=== PATIENT | male | born 1980 | race Caucasian/White ===

== ENCOUNTER 2017-06-02 03:11 | Emergency (ER) | payer OTHER ==
[2017-06-02 03:17] VITALS: TEMP 97.9
[2017-06-02] MEDS ORDERED: KETOROLAC 30 MG/ML 1 ML VIAL IVP STA (03:29)
[2017-06-02] MEDS ORDERED: SODIUM CHLORIDE 0.9% 1,000 ML IV STA ×2 (03:29)
[2017-06-02] MEDS ORDERED: ONDANSETRON 4 MG/2 ML VIAL IVP STA (03:29)
[2017-06-02] MEDS ORDERED: HYDROmorphone 1 MG/ML 1 ML SYRINGE IVP STA (03:29)
[2017-06-02] MEDS ORDERED: RX INFO: IV CONTRAST WAS GIVEN 1 EACH MISC MISCELLANE PRN (03:36)
[2017-06-02 03:54] LABS: Basophils % (A) 1 %; Eosinophils # (A) 0.1 k/uL (0-0.7); Eosinophils % (A) 1 %; HGB 14.2 gm/dL (13.0-17.5); Lymphocytes # (A) 1.2 k/uL (1.0-4.8); Lymphocytes % (A) 18 %; MCH 27.7 pg (25.0-35.0); MCHC 32.3 g/dL (31.0-37.0); MCV 85.6 fL (80.0-100.0); Mean Platelet Volume 8.7; Monocytes # (A) 0.2 k/uL (0-1.0); Monocytes % (A) 3 %; Neutrophils # (A) 5.1 k/uL (1.3-7.7); Neutrophils % (A) 76 %; Platelet Count 212 k/uL (150-450); RBC 5.14 m/uL (4.30-5.90); RDW 14.7 % (11.5-15.5); WBC 6.8 k/uL (3.8-10.6)
[2017-06-02 04:02] LABS: ALT 48 U/L (21-72); AST 27 U/L (17-59); Albumin 4.6 g/dL (3.5-5.0); Alkaline Phosphatase 75 U/L (38-126); Amylase 30 U/L (30-110); Anion Gap 12 mmol/L; Blood Urea Nitrogen 18 mg/dL (9-20); Calcium 9.4 mg/dL (8.4-10.2); Carbon Dioxide 29 mmol/L (22-30); Chloride 101 mmol/L (98-107); Glucose 136 mg/dL (74-99); Lipase 54 U/L (23-300); Potassium 4.3 mmol/L (3.5-5.1); Sodium 142 mmol/L (137-145); Total Bilirubin 0.4 mg/dL (0.2-1.3); Total Protein 7.6 g/dL (6.3-8.2)
--- NOTE | 2017-06-02 04:10 | ED ---
Abdominal Pain HPI - General Chief Complaint: Abdominal Pain Stated Complaint: abd pain Time Seen by Provider: 06/02/17 03:22 Source: patient, RN notes reviewed, old records reviewed Mode of arrival: ambulatory Limitations: no limitations - History of Present Illness Initial Comments: Patient is a 36-year-old male presenting to emergency department today chief complaint of severe right upper quadrant and right sided abdominal pain radiating towards his back. Patient reports that the symptoms of been going on for the past few hours. Patient has been vomiting for the past 3 days off and on, was having some minor pain. He reports became severe over the past few hours prior to arriving to emergency department. He does not have a primary care provider and rarely goes to the doctor. Patient reports that he's had diarrhea over the past few days as well. He denies any known fever or chills. Denies any known urinary symptoms. He states that he's been trying to urinate over the past few hours but has been unsuccessful. Patient states that he has had prior surgery for testicular torsion. No other surgeries or medical history noted. - Related Data Previous Rx's Medication Instructions Recorded Ciprofloxacin HCl [Cipro] 500 mg PO Q12HR 5 Days tab 06/02/17 HYDROcodone/APAP 5-325MG [[place] 1 - 2 tab PO Q6HR PRN #15 tab 06/02/17 5-325] Ketorolac [Toradol] 10 mg PO Q6HR #15 tab 06/02/17 Ondansetron Odt [Zofran Odt] 4 mg PO Q8HR PRN #12 tab 06/02/17 Tamsulosin [Flomax] 0.4 mg PO DAILY #10 cap 06/02/17 Allergies Allergy/AdvReac Type Severity Reaction Status Date / Time blueberry Allergy Unknown Verified 06/02/17 03:17 Review of Systems ROS Statement: Those systems with pertinent positive or pertinent negative responses have been documented in the HPI. ROS Other: All systems not noted in ROS Statement are negative. Past Medical History Additional Past Medical History / Comment(s): hx. of twisted testicle. History of Any Multi-Drug Resistant Organisms: None Reported Past Surgical History: No Surgical Hx Reported Past Psychological History: No Psychological Hx Reported Smoking Status: Never smoker Past Alcohol Use History: Occasional Past Drug Use History: None Reported General Exam - General Exam Comments Initial Comments: This is a 36-year-old male. Patient appears in acute discomfort. Limitations: no limitations General appearance: alert, in no apparent distress Head exam: Present: atraumatic, normocephalic, normal inspection Eye exam: Present: normal appearance, PERRL, EOMI. Absent: scleral icterus, conjunctival injection, periorbital swelling ENT exam: Present: normal exam, mucous membranes moist Neck exam: Present: normal inspection. Absent: tenderness, meningismus, lymphadenopathy Respiratory exam: Present: normal lung sounds bilaterally. Absent: respiratory distress, wheezes, rales, rhonchi, stridor Cardiovascular Exam: Present: regular rate, normal rhythm, normal heart sounds. Absent: systolic murmur, diastolic murmur, rubs, gallop, clicks GI/Abdominal exam: Present: tenderness (Patient has significant tenderness, guarding and rebound tenderness over the right upper and lower quadrants.), guarding, rebound, normal bowel sounds. Absent: soft, distended, rigid Extremities exam: Present: normal inspection, full ROM, normal capillary refill. Absent: tenderness, pedal edema, joint swelling, calf tenderness Back exam: Present: normal inspection Neurological exam: Present: alert, oriented X3, CN II-XII intact Psychiatric exam: Present: normal affect, normal mood Skin exam: Present: warm, dry, intact, normal color. Absent: rash Course Vital Signs 06/02/17 06/02/17 03:13 05:23 Temperature 97.9 F Pulse Rate 68 52 L Respiratory 18 16 Rate Blood Pressure 136/96 128/74 O2 Sat by Pulse 99 97 Oximetry Medical Decision Making - Medical Decision Making Patient is a 36-year-old male presenting to emergency department today chief complaint of severe right upper quadrant and right sided abdominal pain radiating towards his back. Patient reports that the symptoms of been going on for the past few hours. Patient has been vomiting for the past 3 days off and on, was having some minor pain. He reports became severe over the past few hours prior to arriving to emergency department. Patient given IV fluids and lab work obtained. Urinalysis shows minor RBC. No other abnormalities noted. CT shows evidence of right ureteral stone. Patient will be discharged with flomax, pain medication, tirso. Discussed follow up with PCP and urology. Return parameters dsicussed. - Lab Data Result diagrams: 06/02/17 03:25 06/02/17 03:25 Lab Results 06/02/17 06/02/17 06/02/17 Range/Units 03:25 03:25 04:31 WBC 6.8 (3.8-10.6) k/uL RBC 5.14 (4.30-5.90) m/uL Hgb 14.2 (13.0-17.5) gm/dL Hct 44.0 (39.0-53.0) % MCV 85.6 (80.0-100.0) fL MCH 27.7 (25.0-35.0) pg MCHC 32.3 (31.0-37.0) g/dL RDW 14.7 (11.5-15.5) % Plt Count 212 (150-450) k/uL Neutrophils % 76 % Lymphocytes % 18 % Monocytes % 3 % Eosinophils % 1 % Basophils % 1 % Neutrophils # 5.1 (1.3-7.7) k/uL Lymphocytes # 1.2 (1.0-4.8) k/uL Monocytes # 0.2 (0-1.0) k/uL Eosinophils # 0.1 (0-0.7) k/uL Basophils # 0.0 (0-0.2) k/uL Sodium 142 (137-145) mmol/L Potassium 4.3 (3.5-5.1) mmol/L Chloride 101 (98-107) mmol/L Carbon Dioxide 29 (22-30) mmol/L Anion Gap 12 mmol/L BUN 18 (9-20) mg/dL Creatinine 1.10 (0.66-1.25) mg/dL Est GFR (MDRD) Af Amer >60 (>60 ml/min/1.73 sqM) Est GFR (MDRD) Non-Af >60 (>60 ml/min/1.73 sqM) Glucose 136 H (74-99) mg/dL Calcium 9.4 (8.4-10.2) mg/dL Total Bilirubin 0.4 (0.2-1.3) mg/dL AST 27 (17-59) U/L ALT 48 (21-72) U/L Alkaline Phosphatase 75 (38-126) U/L Total Protein 7.6 (6.3-8.2) g/dL Albumin 4.6 (3.5-5.0) g/dL Amylase 30 (30-110) U/L Lipase 54 (23-300) U/L Urine Color Yellow Urine Appearance Clear (Clear) Urine pH 6.0 (5.0-8.0) Ur Specific [place] >1.050 H (1.001-1.035) Urine Protein 1+ H (Negative) Urine Glucose (UA) Negative (Negative) Urine Ketones Negative (Negative) Urine Blood Small H (Negative) Urine Nitrite Negative (Negative) Urine Bilirubin Negative (Negative) Urine Urobilinogen <2.0 (<2.0) mg/dL Ur Leukocyte Esterase Negative (Negative) Urine RBC 6 H (0-5) /hpf Urine WBC 3 (0-5) /hpf Ur Squamous Epith Cells 1 (0-4) /hpf Urine Mucus Rare H (None) /hpf - Radiology Data Radiology results: report reviewed Evidence of right ureteral stone with fullness in right pelvis. Likely benign renal cyst. No sign of appendicitis. Disposition Clinical Impression: Right ureteral stone Disposition: HOME SELF-CARE Condition: Good Instructions: Ureteral Stones (ED) Additional Instructions: Patient advised to a take the medications as prescribed. Follow-up with urologist. Return to the emergency department if any alarming signs or symptoms occur. Prescriptions: Ciprofloxacin HCl [Cipro] 500 mg PO Q12HR 5 Days tab HYDROcodone/APAP 5-325MG [[place] 5-325] 1 - 2 tab PO Q6HR PRN #15 tab PRN Reason: Pain Ketorolac [Toradol] 10 mg PO Q6HR #15 tab Ondansetron Odt [Zofran Odt] 4 mg PO Q8HR PRN #12 tab PRN Reason: Nausea Tamsulosin [Flomax] 0.4 mg PO DAILY #10 cap Referrals: None,Stated [Primary Care Provider] - 1-2 days Kiran Shook MD [STAFF PHYSICIAN] - 1-2 days Time of Disposition: 05:11
--- NOTE | 2017-06-02 04:38 | CT ---
EXAM: CT Abdomen and Pelvis With Intravenous Contrast CLINICAL HISTORY: Reason: RUQ pain TECHNIQUE: Axial computed tomography images of the abdomen and pelvis with intravenous contrast. CTDI is 44.6 mGy and DLP is 1977.2 mGy-cm. This CT exam was performed using one or more of the following dose reduction techniques: automated exposure control, adjustment of the mA and/or kV according to patient size, and/or use of iterative reconstruction technique. COMPARISON: None FINDINGS: Lower thorax: Small hiatal hernia. ABDOMEN: Liver: Unremarkable. No mass. Gallbladder and bile ducts: Unremarkable. No calcified stones. No ductal dilation. Pancreas: Unremarkable. No mass. No ductal dilation. Spleen: Unremarkable. No splenomegaly. Adrenals: Unremarkable. No mass. Kidneys and ureters: 1.8 x 1.6 cm low-density lesion in the posterior upper right kidney demonstrating slight wedge like appearance. This demonstrates Hounsfield measurement of 15. This may represent a complex cyst. Focal evolving infarction give this appearance. Slight fullness of the right renal pelvis. 2 mm calcification in the mid right ureter likely calculus. No left renal or ureteral calculus. Stomach and bowel: Nonspecific bowel gas pattern. No obstruction. No mucosal thickening. Appendix: Normal appendix. PELVIS: Bladder: Unremarkable. No mass. Reproductive: Unremarkable as visualized. ABDOMEN and PELVIS: Intraperitoneal space: Unremarkable. No free air. No significant fluid collection. Bones/joints: Mild compression deformities in the lower thoracic spine, likely chronic. Endplate changes at multiple levels in the lower thoracic spine and lumbar spine. No dislocation. Soft tissues: Small left inguinal hernia containing fat. Vasculature: Unremarkable. No abdominal aortic aneurysm. Lymph nodes: Unremarkable. No enlarged lymph nodes. Other findings: IMPRESSION: Tiny right mid ureteral calculus with slight fullness of the proximal right renal pelvis. Small right renal lesion, likely benign. No CT evidence for appendicitis.
[2017-06-02 04:52] LABS: Appearance,Urine Clear (Clear); Bilirubin,Urine Negative (Negative); Blood,Urine Small (Negative); Color,Urine Yellow; Glucose,Urine (UA) Negative (Negative); Ketones,Urine Negative (Negative); Leukocyte Esterase,Urine Negative (Negative); Mucus,Urine Rare /hpf; Nitrite,Urine Negative (Negative); Protein,Urine 1+ (Negative); RBC,Urine 6 /hpf (0-5); Squamous Epithelial Cell,Urine 1 /hpf (0-4); Urobilinogen,Urine <2.0 mg/dL (<2.0); WBC,Urine 3 /hpf (0-5)
[2017-06-02 04:53] LABS: Specific Gravity,Urine >1.050 (1.001-1.035)
[2017-06-02] MEDS ORDERED: TAMSULOSIN 0.4 MG CAP.ER.24H PO STA (05:12)
[2017-06-02 05:24] VITALS: BP 128/74; PULSE 52; RESP 16
== END 2017-06-02 05:30 | disposition home or self-care (01) ==
LOC: EC 03:11
DX: N20.1 Calculus of ureter (principal); R10.11 Right upper quadrant pain; R19.7 Diarrhea, unspecified; Z91.018 Allergy to other foods; Z98.890 Other specified postprocedural states
CPT/HCPCS: 99284; 96374; 96375 ×2; 96361 ×3; 36415; 80053; 82150; 83690; 85025; 81001; 74177; J2405; J1885; J1170; Q9967

== ENCOUNTER 2018-08-25 06:50 | Emergency (ER) | payer OTHER ==
[2018-08-25 07:00] VITALS: RESP 18; TEMP 97.6
[2018-08-25] MEDS ORDERED: HYDROmorphone 1 MG/ML 1 ML SYRINGE IVP STA (07:12)
[2018-08-25] MEDS ORDERED: SODIUM CHLORIDE 0.9% 1,000 ML IV STA (07:12)
[2018-08-25] MEDS ORDERED: ONDANSETRON 4 MG/2 ML VIAL IVP STA (07:12)
[2018-08-25] MEDS ORDERED: KETOROLAC 30 MG/ML 1 ML VIAL IVP STA (07:12)
--- NOTE | 2018-08-25 07:14 | ED ---
General Adult HPI - General Chief complaint: Abdominal Pain Stated complaint: Abdominal Pain Time Seen by Provider: 08/25/18 07:00 Source: patient, family, RN notes reviewed Mode of arrival: ambulatory Limitations: no limitations - History of Present Illness Initial comments: This is a 38-year-old male who presents emergency department with 12 hours of left sided quadrant abdominal pain. Patient states she's had the dry heaves but actually has not vomited. Patient states a little bit of diarrhea but not a lot. Patient states she's had a kidney stone history the past. Patient denies any previous surgeries. Patient states the pain is gotten more intense over the 12 hours. Patient denies any fever chills. Patient denies any chest pain difficult breathing shortness of breath. Patient denies any dysuria hematuria urinary frequency. Patient states is a little bit of back pain on the left side. - Related Data Home Medications Medication Instructions Recorded Confirmed [place] Unknown Dose 1 tab PO ONCE PRN 08/25/18 08/25/18 Previous Rx's Medication Instructions Recorded Hydrocodone/Acetaminophen [[place] 1 each PO Q4HR PRN #14 tab 08/25/18 5-325] Ketorolac [Toradol] 10 mg PO Q6HR #15 tab 08/25/18 Allergies Allergy/AdvReac Type Severity Reaction Status Date / Time blueberry Allergy Unknown Verified 08/25/18 07:29 Review of Systems ROS Statement: Those systems with pertinent positive or pertinent negative responses have been documented in the HPI. ROS Other: All systems not noted in ROS Statement are negative. Past Medical History Additional Past Medical History / Comment(s): hx. of twisted testicle. History of Any Multi-Drug Resistant Organisms: None Reported Past Surgical History: No Surgical Hx Reported Past Psychological History: No Psychological Hx Reported Smoking Status: Never smoker Past Alcohol Use History: Occasional Past Drug Use History: None Reported General Exam - General Exam Comments Initial Comments: GENERAL: Patient is well-developed and well-nourished. Patient is nontoxic and well- hydrated and is in moderate distress. ENT: Neck is soft and supple. No significant lymphadenopathy is noted. Oropharynx is clear. Moist mucous membranes. Neck has full range of motion without eliciting any pain. EYES: The sclera were anicteric and conjunctiva were pink and moist. Extraocular movements were intact and pupils were equal round and reactive to light. Eyelids were unremarkable. PULMONARY: Unlabored respirations. Good breath sounds bilaterally. No audible rales rhonchi or wheezing was noted. CARDIOVASCULAR: There is a regular rate and rhythm without any murmurs gallops or rubs. ABDOMEN: Left-sided abdominal pain on palpation. No rebound. No palpable organomegaly was noted. There is no palpable pulsatile mass. SKIN: Skin is clear with no lesions or rashes and otherwise unremarkable. NEUROLOGIC: Patient is alert and oriented x3. Cranial nerves II through XII are grossly intact. Motor and sensory are also intact. Normal speech, volume and content. Symmetrical smile. MUSCULOSKELETAL: Normal extremities with adequate strength and full range of motion. No lower extremity swelling or edema. No calf tenderness. LYMPHATICS: No significant lymphadenopathy is noted PSYCHIATRIC: Normal psychiatric evaluation. Limitations: no limitations Course Vital Signs 08/25/18 06:58 Temperature 97.6 F Pulse Rate 69 Respiratory 18 Rate Blood Pressure 167/79 O2 Sat by Pulse 97 Oximetry Medical Decision Making - Medical Decision Making Patient has a one to 2 mm kidney stone at the distal aspect of the area. Patient has hydroureter. - Lab Data Result diagrams: 08/25/18 07:12 08/25/18 07:12 Lab Results 08/25/18 08/25/18 08/25/18 Range/Units 07:12 07:12 07:12 WBC 7.2 (3.8-10.6) k/uL RBC 4.98 (4.30-5.90) m/uL Hgb 14.0 (13.0-17.5) gm/dL Hct 42.6 (39.0-53.0) % MCV 85.4 (80.0-100.0) fL MCH 28.2 (25.0-35.0) pg MCHC 33.0 (31.0-37.0) g/dL RDW 13.8 (11.5-15.5) % Plt Count 266 (150-450) k/uL Neutrophils % 71 % Lymphocytes % 21 % Monocytes % 5 % Eosinophils % 1 % Basophils % 0 % Neutrophils # 5.1 (1.3-7.7) k/uL Lymphocytes # 1.5 (1.0-4.8) k/uL Monocytes # 0.4 (0-1.0) k/uL Eosinophils # 0.1 (0-0.7) k/uL Basophils # 0.0 (0-0.2) k/uL Sodium 142 (137-145) mmol/L Potassium 4.2 (3.5-5.1) mmol/L Chloride 109 H (98-107) mmol/L Carbon Dioxide 24 (22-30) mmol/L Anion Gap 9 mmol/L BUN 14 (9-20) mg/dL Creatinine 1.02 (0.66-1.25) mg/dL Est GFR (CKD-EPI)AfAm >90 (>60 ml/min/1.73 sqM) Est GFR (CKD-EPI)NonAf >90 (>60 ml/min/1.73 sqM) Glucose 128 H (74-99) mg/dL Calcium 9.5 (8.4-10.2) mg/dL Total Bilirubin 0.7 (0.2-1.3) mg/dL AST 25 (17-59) U/L ALT 51 (21-72) U/L Alkaline Phosphatase 69 (38-126) U/L Total Protein 7.5 (6.3-8.2) g/dL Albumin 4.5 (3.5-5.0) g/dL Amylase 37 (30-110) U/L Lipase 69 (23-300) U/L Urine Color Yellow Urine Appearance Cloudy (Clear) Urine pH 5.5 (5.0-8.0) Ur Specific [place] 1.029 (1.001-1.035) Urine Protein 1+ H (Negative) Urine Glucose (UA) Negative (Negative) Urine Ketones Negative (Negative) Urine Blood Large H (Negative) Urine Nitrite Negative (Negative) Urine Bilirubin Negative (Negative) Urine Urobilinogen <2.0 (<2.0) mg/dL Ur Leukocyte Esterase Negative (Negative) Urine RBC 149 H (0-5) /hpf Hyaline Casts 12 H (0-2) /lpf Urine Mucus Many H (None) /hpf Disposition Clinical Impression: Kidney stone Disposition: HOME SELF-CARE Condition: Good Instructions (If sedation given, give patient instructions): Kidney Stones (ED), How to Strain Your Urine (ED) Prescriptions: Hydrocodone/Acetaminophen [[place] 5-325] 1 each PO Q4HR PRN #14 tab PRN Reason: Pain Ketorolac [Toradol] 10 mg PO Q6HR #15 tab Is patient prescribed a controlled substance at d/c from ED?: Yes When asked, does pt state using other controlled substances?: No If prescribed controlled substance>3 days was MAPS reviewed?: Prescribed <3 Days If opioid is for acute pain is fill amount 7 days or less?: Yes If Rx opioid, was Start Talking consent form obtained?: Yes Referrals: None,Stated [Primary Care Provider] - 1-2 days Time of Disposition: 08:07
[2018-08-25 07:29] LABS: Appearance,Urine Cloudy (Clear); Bilirubin,Urine Negative (Negative); Blood,Urine Large (Negative); Color,Urine Yellow; Glucose,Urine (UA) Negative (Negative); Hyaline Casts,Urine 12 /lpf (0-2); Ketones,Urine Negative (Negative); Leukocyte Esterase,Urine Negative (Negative); Mucus,Urine Many /hpf; Nitrite,Urine Negative (Negative); PH, Urine 5.5 (5.0-8.0); Protein,Urine 1+ (Negative); RBC,Urine 149 /hpf (0-5); Specific Gravity,Urine 1.029 (1.001-1.035); Urobilinogen,Urine <2.0 mg/dL (<2.0)
[2018-08-25 07:37] LABS: ALT 51 U/L (21-72); AST 25 U/L (17-59); Albumin 4.5 g/dL (3.5-5.0); Alkaline Phosphatase 69 U/L (38-126); Amylase 37 U/L (30-110); Anion Gap 9 mmol/L; Blood Urea Nitrogen 14 mg/dL (9-20); Calcium 9.5 mg/dL (8.4-10.2); Carbon Dioxide 24 mmol/L (22-30); Chloride 109 mmol/L (98-107); Glucose 128 mg/dL (74-99); Lipase 69 U/L (23-300); Potassium 4.2 mmol/L (3.5-5.1); Sodium 142 mmol/L (137-145); Total Bilirubin 0.7 mg/dL (0.2-1.3); Total Protein 7.5 g/dL (6.3-8.2)
--- NOTE | 2018-08-25 07:44 | XR ---
EXAMINATION TYPE: XR KUB , 2 VIEWS DATE OF EXAM ORDERED: 08/25/2018 HISTORY: abdominal pain. COMPARISON: None. FINDINGS: The lung bases are clear. Within the abdomen, the abdominal gas pattern is unremarkable. There is no evidence of obstruction or free air. No unusual calcifications are seen. IMPRESSION: NONACUTE ABDOMEN.
[2018-08-25 08:00] LABS: Basophils % (A) 0 %; Eosinophils # (A) 0.1 k/uL (0-0.7); Eosinophils % (A) 1 %; HCT 42.6 % (39.0-53.0); Lymphocytes # (A) 1.5 k/uL (1.0-4.8); Lymphocytes % (A) 21 %; MCH 28.2 pg (25.0-35.0); MCV 85.4 fL (80.0-100.0); Mean Platelet Volume 7.7; Monocytes # (A) 0.4 k/uL (0-1.0); Monocytes % (A) 5 %; Neutrophils # (A) 5.1 k/uL (1.3-7.7); Neutrophils % (A) 71 %; Platelet Count 266 k/uL (150-450); RBC 4.98 m/uL (4.30-5.90); RDW 13.8 % (11.5-15.5); WBC 7.2 k/uL (3.8-10.6)
--- NOTE | 2018-08-25 08:03 | CT ---
EXAMINATION TYPE: CT abdomen pelvis wo con DATE OF EXAM: 08/25/2018 COMPARISON: Previous study dated 06/02/2017 HISTORY: Left sided pain with history of stones. CT DLP: 1279.4 mGycm Automated exposure control for dose reduction was used. FINDINGS: Visualized portions of the lungs are clear. There is no pleural or pericardial fluid. The h eart is not enlarged. Within the abdomen, the liver spleen and gallbladder are normal. Both adrenal glands appear normal. The lesion in the upper pole of the right kidney which previously measured 2.1 cm now measures 4 cm. This may represent an enlarging cyst. There is mild fullness in the left renal pelvis and there is mi ld dilatation of the left ureter as well as some stranding about the left ureter. There is a tiny, 1 to 2 mm calculus in the region of the left trigone of the bladder. This may represent a recently pass ed calculus. This was not present previously. Both the large and small bowel appear unremarkable. The appendix is normal. There is no free fluid and no free air is seen. There is hypertrophic spondylosis present at L1-2. Th ere is mild wedging of the thoracic vertebra from T9 to T12. This may have progressed slightly. IMPRESSION: 1. 1 TO 2 MM CALCULUS AT THE LEVEL OF THE TRIGONE OF THE BLADDER ON THE LEFT WITH SOME STRANDING OF T HE LEFT URETER AND MILD FULLNESS OF THE LEFT RENAL PELVIS SUGGESTS A RECENTLY PASSED STONE. 2. ENLARGING RIGHT RENAL LESION. 3. MILD WEDGING OF SEVERAL OF THE LOWER DORSAL VERTEBRA WHICH MAY HAVE PROGRESSED SLIGHTLY.
[2018-08-25 08:26] VITALS: BP 150/70; PULSE 65
== END 2018-08-25 08:26 | disposition home or self-care (01) ==
LOC: EC 06:50
DX: N13.2 Hydronephrosis with renal and ureteral calculous obstruction (principal); R19.7 Diarrhea, unspecified; Z91.018 Allergy to other foods
CPT/HCPCS: 36415; 80053; 82150; 83690; 85025; 81001; 74018; 74176; 99284; 96374; 96375 ×2; 96361; J2405; J1885; J1170

== ENCOUNTER 2021-12-18 13:19 | Emergency (ER) | payer OTHER ==
[2021-12-18 13:30] VITALS: BP 137/90; PULSE 76; RESP 16; TEMP 98
[2021-12-18] MEDS ORDERED: HYDROcodone/APAP 5-325MG 1 EACH TAB PO STA (14:00)
[2021-12-18] MEDS ORDERED: LIDOCAINE 1% INJ 10MG/ML (5 ML VIAL-PF) SQ ONE (14:00)
[2021-12-18] MEDS ORDERED: DIPH,PERTUS(ACELL)TETVAC-LF 0.5 ML VIAL IM ONE (14:00)
--- NOTE | 2021-12-18 14:20 | XR ---
EXAMINATION TYPE: XR finger RT DATE OF EXAM: 12/18/2021 COMPARISON: NONE HISTORY: Trauma. Pain TECHNIQUE: 3 views FINDINGS: There is transverse fracture across the tuft of the distal phalanx of the right thumb. Ther e is separation of the fragments 3 mm. No dislocation. Joint spaces are normal. No evidence of a fore ign body. IMPRESSION: Acute transverse tuft fracture of the distal phalanx of the right thumb.
[2021-12-18] MEDS ORDERED: ceFAZolin 1,000 MG VIAL (IM USE) IM STA (14:26)
[2021-12-18] MEDS ORDERED: GELATIN SPONGE,ABSORB (SMALL) 1 EACH SPONGE TOPICAL STA (15:20)
--- NOTE | 2021-12-18 15:52 | ED ---
Upper Extremity HPI - General Chief Complaint: Trauma Stated Complaint: Hand/nail injury Time Seen by Provider: 12/18/21 13:46 Source: patient Mode of arrival: ambulatory Limitations: no limitations - History of Present Illness Initial Comments: This is a 41-year-old male who presents to the emergency department for a right thumb injury. Patient was at work when he got his thumb caught in a sand meal grinder tender. States that his thumb currently feels numb. Unsure when his last tetanus vaccine was. Denies any fevers, chills, sore throat, cough, dyspnea, chest pain, palpitations, abdominal pain, nausea, vomiting, diarrhea, back pain, or headaches. MD Complaint: Injury to:: right, finger (thumb) - Related Data Home Medications Medication Instructions Recorded Confirmed [place] Unknown Dose 1 tab PO ONCE PRN 08/25/18 08/25/18 Previous Rx's Medication Instructions Recorded Hydrocodone/Acetaminophen [[place] 1 each PO Q4HR PRN #14 tab 08/25/18 5-325] Ketorolac [Toradol] 10 mg PO Q6HR #15 tab 08/25/18 Cephalexin [Keflex] 1,000 mg PO Q12HR 7 Days #28 cap 12/18/21 Allergies Allergy/AdvReac Type Severity Reaction Status Date / Time blueberry Allergy Unknown Verified 12/18/21 13:28 Review of Systems ROS Statement: Those systems with pertinent positive or pertinent negative responses have been documented in the HPI. ROS Other: All systems not noted in ROS Statement are negative. Past Medical History Additional Past Medical History / Comment(s): hx. of twisted testicle. History of Any Multi-Drug Resistant Organisms: None Reported Past Surgical History: No Surgical Hx Reported Past Psychological History: No Psychological Hx Reported Past Alcohol Use History: Occasional Past Drug Use History: None Reported General Exam Limitations: no limitations General appearance: alert, in no apparent distress Head exam: Present: atraumatic, normocephalic, normal inspection Respiratory exam: Present: normal lung sounds bilaterally. Absent: respiratory distress, wheezes, rales, rhonchi, stridor Cardiovascular Exam: Present: regular rate, normal rhythm, normal heart sounds. Absent: systolic murmur, diastolic murmur, rubs, gallop, clicks Neurological exam: Present: alert, oriented X3, CN II-XII intact Psychiatric exam: Present: normal affect, normal mood Skin exam: Present: other (The nail of the right thumb has been pulled off and there is a vertical laceration through the center. Active bleeding. ) Course Vital Signs 12/18/21 13:28 Temperature 98 F Pulse Rate 76 Respiratory 16 Rate Blood Pressure 137/90 O2 Sat by Pulse 99 Oximetry Procedures - Laceration Laceration #1 Consent Obtained: verbal consent Indication: laceration Site: other (right thumb) Size (cm): 1 Description: linear Depth: simple, single layer Anesthetic Used: lidocaine 1% Anesthesia Technique: local infiltration Amount (mls): 1 Pre-repair: wound explored, irrigated extensively Type of Sutures: nylon Size of Sutures: 5-0 Number of Sutures: 2 Technique: simple, interrupted Medical Decision Making - Medical Decision Making This is a 41-year-old male who presents to the emergency department for a right thumb injury. X-ray reveals a distal tuft fracture. 2 sutures were placed on the lateral nailbed of the right thumb, however the injury on the dorsal aspect of the right thumb was unable to be repaired with sutures. There were no edges to approximate. Gelfoam was placed instead. Patient's thumb was wrapped and a splint was applied. He was given instructions to follow up with orthopedics next week. Given that this is considered an open fracture, patient was started on a course of Keflex and a dose of Kefzol was administered in the emergency department. Tetanus status was updated. Return precautions reviewed in depth, the patient is instructed to return to the emergency department with any new, worsening, or concerning symptoms. Patient verbalized understanding. This case was discussed in detail with the attending ED physician. Presentation, findings, and treatment plan discussed in detail as well. - Radiology Data Radiology results: report reviewed, image reviewed Disposition Clinical Impression: Open fracture of tuft of distal phalanx of right thumb Disposition: HOME SELF-CARE Instructions (If sedation given, give patient instructions): Care For Your Stitches (ED), Thumb Fracture (ED) Additional Instructions: Return to the emergency department with any new, worsening, or concerning symptoms and to have the stitches removed in 7 days. Take the antibiotic as prescribed for 7 days. Contact orthopedic associates listed on your discharge forms for a follow up appointment next week. Orthopedic associates can also remove the stitches if they feel like they are ready to come out. Prescriptions: Cephalexin [Keflex] 1,000 mg PO Q12HR 7 Days #28 cap Is patient prescribed a controlled substance at d/c from ED?: No Referrals: None,Stated [Primary Care Provider] - 1-2 days Jossy Arcos DO [Doctor of Osteopathic Medicine] - 1-2 days
== END 2021-12-18 16:20 | disposition home or self-care (01) ==
LOC: EC 13:19
DX: S62.524A Nondisplaced fracture of distal phalanx of right thumb, initial encounter for closed fracture (principal); Z91.018 Allergy to other foods
CPT/HCPCS: 12001; 90471; 96372; 99283; 73140; 90715; J0690; J2001